=== PATIENT | female | born 1950 | race Caucasian/White ===

== ENCOUNTER 2021-12-04 10:33 | Day surgery (SDC) | payer MEDICARE, SELFPAY ==
[2021-12-04 11:10] VITALS: BP 178/87; PULSE 74; RESP 18; TEMP 35.9; O2SAT 97
[2021-12-04] MEDS: Tropicam./Phenyleph. (1/2.5%) 5 ML BTL OD ×3 (11:19→11:37)
[2021-12-04 11:25] VITALS: BP 150/86; PULSE 68; RESP 16; O2SAT 99
--- NOTE | 2021-12-04 11:33 | W.ANESPRE ---
General Info Date of Service Date Performed: 12/04/21 Height: 5 ft 2 in Weight: 79.379 kg Body Mass Index (BMI): 32.0 Surgical Procedure: Operation Date: 12/04/21 12:55 Proposed Procedure Side Surgeon p Cataract Extraction with IOL Implant Right Jeff Smith MD Meds Allergies and Home Medications Allergies Allergy/AdvReac Type Severity Reaction Status Date / Time amoxicillin Allergy Intermediate Hives Unverified 12/04/21 11:24 mushroom Allergy Intermediate Hives Unverified 12/04/21 11:24 animal dander Allergy Unknown Other (See Unverified 12/04/21 11:24 Comment) Sulfa (Sulfonamide Allergy Unknown Other (See Unverified 12/04/21 11:24 Antibiotics) Comment) tree and shrub pollen Allergy Unknown Other (See Unverified 12/04/21 11:24 Comment) Penicillins Allergy Hives Unverified 12/04/21 11:24 Nuts Allergy Unknown Other (See Uncoded 12/04/21 11:24 Comment) Home Medication Medication Instructions Recorded albuterol sulfate 90 mcg/actuation 1 puff INHALATION Q4H 11/30/21 aerosol inhaler amlodipine 5 mg tablet 5 mg PO DAILY 11/30/21 atorvastatin 40 mg tablet 40 mg PO DAILY 11/30/21 buspirone 15 mg tablet 15 mg PO DAILY 11/30/21 cholecalciferol (vitamin D3) 25 50 mcg PO DAILY 11/30/21 mcg (1,000 unit) capsule (Vitamin D3) famotidine 10 mg tablet 10 mg PO DAILY 11/30/21 fluticasone propionate 110 2 puff INHALATION BID 11/30/21 mcg/actuation HFA aerosol inhaler (Flovent HFA) fluticasone propionate 50 2 spray INTRANASAL DAILY 11/30/21 mcg/actuation nasal spray,suspension potassium chloride 10 mEq 10 meq PO DAILY 11/30/21 tablet,extended release sertraline 100 mg tablet 150 mg PO DAILY 11/30/21 Current Visit Medications: Current Medications Generic Name Dose Route Start Last Admin Trade Name Freq PRN Reason Stop Dose Admin Acetaminophen 1,000 mg 12/04/21 06:00 Acetaminophen 500 Mg Tab PO Q4H PRN PRN Miscellaneous Medication 0 ml 12/04/21 06:00 Prednisolone 1%, Moxifloxacin 0.5%, Nepafenac 0.1% 5ml Btl OD DIRECTED HANH Miscellaneous Medication 0 ml 12/04/21 06:00 12/04/21 11:30 Tropicam./Phenyleph. (1/2.5%) 5 Ml Btl OD 1 drp DIRECTED HANH Administration Tetracaine HCl 0 ml 12/04/21 06:00 Tetracaine 0.5% 4 Ml Btl OD DIRECTED HANH PFSH Active Problems Active Problems: Problem Status Onset Code Nuclear sclerotic cataract of right eye H25.11 Cortical cataract of right eye H26.9 Posterior subcapsular age-related cataract, right eye H25.041 Medical History Medical History Agoraphobia Allergic rhinitis Anxiety Asthma Depressive disorder GERD without esophagitis Goiter HLD (hyperlipidemia) Hypertensive disorder Pt. stated she f/u with PCP 11/30 in regards to her BP and will stay on amlodipine BP was 140/82, and will no longer titrate off amlodipine. Pt. stated she was ok to proceed with surgery for Monday 12/04 Migraine Panic attack Surgical History Surgical History (Updated 12/04/21 @ 11:23 by Edita Le) History of dental surgery Hx of cataract surgery Hx of colonoscopy pt denies Hx of hand surgery hand tendon release per note. Tobacco Smoking/Tobacco Use Status: Former Tobacco Use Alcohol Alcohol Intake: never Substance Use Substance use: Never Substance use type: does not use Vital Signs and Lab Results Lab Results Blood Type / Crossmatch: No Data to Display Complete Blood Count: No Data to Display Complete Metabolic Panel: No Data to Display Liver Function Panel: No Data to Display Coagulation Panel: No Data to Display Cardiac Panel: No Data to Display Arterial Blood Gas: No Data to Display Venous Blood Gas: No Data to Display Pancreas Panel: No Data to Display Thyroid Panel: No Data to Display Infectious Disease: No Data to Display Blood Cultures: No Data to Display Toxicology Panel: No Data to Display Anesthesia Assessment and Plan Anesthesia History Personal History: No History of Anesthesia Complications Family History: No Family History of Anesthesia Complications Exercise Tolerance Exercise Tolerance: Metabolic Equivalents>4 Pertinent Negatives Pertinent Negatives: No Major Cardiovascular Symptoms or Complaints and No Major Pulmonary Symptoms or Complaints Cardiac & Pulmonary Exam Cardiac Exam: Normal S1/S2 Heart Sounds Pulmonary Exam: Clear Bilateral Breath Sounds Implantable Cardiac Device Does patient have a Pacemaker or an ICD?: No Airway Exam Known Difficult Airway: No Mallampati Class: 2 Mouth Opening: Normal (> 3cm) Thyromental Distance: Greater than 3 cm Neck Range of Motion: Full ROM Neck Circumference: Normal Teeth Condition: Normal Dentition, Removable Dentures/Plates Upper, Removable Dentures/Plates Lower and Edentulous ASA Classification ASA Score: ASA 2 Emergency Case?: No NPO Status NPO Status: NPO Clears >2 hours, Solids >8 hours Anesthesia Plan Resuscitation Status: Full Code Anesthesia Technique: MAC Anesthesia Airway Planned: Natural Airway Monitors Used: Standard Monitors
[2021-12-04 11:51] VITALS: BMI 32.0
[2021-12-04] MEDS: Povidone-Iodine Ophth 30 ML BTL (11:59)
[2021-12-04] MEDS: Tetracaine 0.5% 4 ML BTL OD (11:59)
[2021-12-04] MEDS: Lidocaine 2% Jelly 6 ML SYR (12:05)
[2021-12-04] MEDS: Balanced Salt Soln.-PLUS 500 ML BAG (12:06)
[2021-12-04] MEDS: Duovisc Viscoelastic System EACH 1 EACH (12:06)
[2021-12-04] MEDS: Trypan Blue 0.06% 0.5 ML SYR (12:08)
[2021-12-04 12:36] VITALS: BP 150/79; PULSE 65; RESP 16; TEMP 36.4; O2SAT 99
--- NOTE | 2021-12-04 12:36 | PDOC.DSDIS_ITS ---
Discharge Plan Disposition Patient Disposition: HOME Condition: Good Discharge Details Attending Provider: Jeff Smith Primary Care Provider: Jaz Romero Home Meds and New Rx's Prescriptions: No Action atorvastatin 40 mg Tablet 40 mg PO DAILY 0RF famotidine 10 mg Tablet 10 mg PO DAILY 0RF sertraline 100 mg Tablet 150 mg PO DAILY 0RF potassium chloride 10 mEq Tablet Extended Release 10 meq PO DAILY 0RF amlodipine 5 mg Tablet 5 mg PO DAILY 0RF albuterol sulfate 90 mcg/actuation Hfa Aerosol Inhaler 1 puff INHALATION Q4H 0RF fluticasone propionate 50 mcg/actuation [place],Suspension 2 spray INTRANASAL DAILY 0RF Flovent HFA 110 mcg/actuation Hfa Aerosol Inhaler 2 puff INHALATION BID 0RF buspirone 15 mg Tablet 15 mg PO DAILY 0RF cholecalciferol (vitamin D3) [Vitamin D3] 25 mcg (1,000 unit) Capsule 50 mcg PO DAILY 0RF Discharge Instructions Stand Alone Forms: Post-op Topical Cataract, Rosa Boothe (DSU) Discharge Orders Discharge Orders: Discharge Order (Routine); Ordered 12/04/21 Ordered By: Jeff Smith DS: Diagnosis Discharge Diagnosis (1) Nuclear sclerotic cataract of right eye: Status: Resolved (2) Cortical cataract of right eye: Status: Resolved (3) Posterior subcapsular age-related cataract, right eye: Status: Resolved
--- NOTE | 2021-12-04 12:37 | W.PM.OP ---
Date of service: 12/04/21 Time of Service: 12:37 Operative Note Operative Note DATE OF PROCEDURE: 12/04/21 PRE-OP DIAGNOSIS: Nuclear/cortical/posterior subcapsular cataract, right eye Absent red reflex, right eye POST-OP DIAGNOSIS: same PROCEDURE: Cataract extraction using phacoemulsification with intraocular lens implantation, right eye, using capsular staining with Vision Blue SURGEON: Jeff Smith ANESTHESIA TYPE: Local By Surgeon and MAC Refer to Anesthesia Record PATHOLOGY: none sent COMPLICATIONS: None Patient was transported to: same day Patient's condition: stable Implants: [employer] / [employer] Tecnis [id number] Indications: Progressive visual loss due to cataract, right eye Procedure Description: CATARACT SURGERY OPERATIVE REPORT PREOPERATIVE DIAGNOSIS: 1. Nuclear/cortical/posterior subcapsular cataract, right eye, mature cataract 2. Poor red reflex secondary to #1 POSTOPERATIVE DIAGNOSIS: Same OPERATION: 1. Cataract extraction using phacoemulsification with posterior chamber intraocular lens implant, right eye. 2. Capsular staining with Vision Blue IOL: IOL Supervisor [employer]/Model: [employer] / ERASMO Tecnis [id number] IOL Power: + 22.0 diopters IOL Serial Number: [id number] Optic Diameter: 6.0mm Haptic/Overall Diameter: 13.0mm PHACO INFO: Cedric EDP Biotechurion Vision System with OZil and Active Fluidics Cumulative Dispersed Energy (CDE): 27.38 seconds SURGEON: Jeff Smith MD, DARIO ANESTHESIA: Monitored Anesthesia Care (MAC), with local sub-tenon's anesthetic infiltration COMPLICATIONS: None SPECIMENS: None INDICATIONS FOR PROCEDURE: The patient is a 71-year-old lady with history of diminished visual acuity in her right eye secondary to the development of a mature white cataract with dense nuclear/cortical/posterior subcapsular opacification. The option of cataract surgery was offered to the patient and she wished to proceed. PROCEDURE: The correct surgical eye was identified and marked as the right eye and the pupil was dilated in the preoperative area using mydriatics and cycloplegics. The dilated pupil size was 7.0 mm. Oral sedation was administered in the form of an Imprimis MKO Melt (midazolam 3mg/ketamine 25mg/ondansetron 2mg). The patient was brought to the operating room where cardiopulmonary monitoring was instituted and surgical time-out was performed, confirming the correct operative eye and IOL power. Topical anesthesia was administered and ophthalmic povidone-iodine 5% was instilled into the conjunctival fornices. Lidocaine gel was applied to the cornea and the junito-ocular area was prepped with Betadine 10% solution and draped in the usual sterile fashion for intraocular surgery, including an aperture drape. A Tegaderm transparent film dressing was cut in half and used to cover the lashes and lid margins. Care was taken to sequester the lashes and lid margins under the Tegaderm dressing. A lid speculum was placed between the lids of the operative eye and the Cedric Lux[employer] Revalia operating microscope was maneuvered into position. Rehana scissors were then used to make a conjunctival buttonhole approximately 6mm posterior to the limbus in the inferonasal quadrant. Blunt dissection was carried out to expose bare sclera, and a blunt-tipped sub-tenon?s anesthesia cannula was introduced and passed posteriorly along the globe where non-preserved plain lidocaine was injected into posterior sub-Tenon?s space. A sideport knife was used to make a paracentesis port inferotemporally. Intraocular phenylephrine/lidocaine was injected into the anterior chamber. Air was injected into the anterior chamber, followed by Vision Blue, which was painted over the anterior capsule and then irrigated out with BSS. The anterior chamber was filled with viscoelastic. A 2.4 mm keratome knife was used to create a 2-plane near clear corneal tunnel extending approximately 2 mm into clear cornea superior temporally.. A flap was raised on the anterior capsule and capsulorhexis forceps were used to complete a continuous curvilinear capsulorhexis of 5.0 mm. Balanced salt solution was then used to perform cortical cleaving hydrodissection and nuclear hydrodelineation until the lens could be freely rotated within the capsular bag. The lens nucleus was then disassembled and removed within the capsular bag and iris plane using phacoemulsification. Additional Viscoat was injected intermittently to protect the corneal endothelium. Residual cortical material was removed using the I/A handpiece. The posterior capsule was carefully polished to remove as much residual lens epithelial cells as safely possible. The capsular bag was then inflated and the anterior chamber deepened with viscoelastic. The lens implant described above was inserted into the capsular bag using the ERASMO [place] Injector. A Kuglen hook was used to dial the IOL into position. Residual viscoelastic was then removed first from posterior to the IOL, then from the anterior chamber using the I/A handpiece. The lens implant was noted to center nicely within the capsular bag. The incisions were stromally hydrated, and the anterior chamber was reformed using BSS. Then 0.5cc of moxifloxacin 1.0mg/ml were injected into the capsular bag and anterior chamber. The incisions were checked with a Weck spear and found to be secure. Several drops of ophthalmic povidone-iodine 5% were then applied to the eye followed by two drops of Imprimis combination prednisolone/moxifloxacin/nepafenac solution. The drapes were removed and a clear plastic protective eye shield was placed over the eye. The patient was then returned to [facility] Day Surgery in stable condition.
--- NOTE | 2021-12-04 12:49 | W.ANESPOSTOP ---
Postoperative Evaluation Date, Time and Location Date Performed: 12/04/21 Time Performed: 12:49 Patient Location: Day Surgery Unit Vital Signs Most Recent Imported Vital Signs: Most Recent Vital Signs Temp Pulse Resp BP Pulse Ox 36.4 C L 65 16 150/79 H 99 12/04/21 12:36 12/04/21 12:36 12/04/21 12:36 12/04/21 12:36 12/04/21 12:36 Pain Score Most Recent Pain Score: Most Recent Pain Score Pain Level 0 12/04/21 12:36 Assessment Mental Status: Awake (Alert & Oriented to Patient Baseline) Airway and Respiratory Function: Patent airway with normal (patient baseline) respiratory exam Cardiovascular Function: Hemodynamically Stable Hydration Status: Adequately Hydrated Nausea & Vomiting: No Nausea or Vomiting Pain: Pt. Denies Any Pain Peripheral Nerve Block: Patient did not receive a nerve block
[2021-12-04 13:10] VITALS: BP 149/82; PULSE 62; RESP 16; TEMP 36.4; O2SAT 97
== END 2021-12-04 13:10 | disposition home or self-care (01) ==
PROVIDERS: PCP Physician Assistant; Visit Provider Ophthalmology
PROC: (CPT 66984; principal; 2021-12-04 12:45)
DX: H25.041 Posterior subcapsular polar age-related cataract, right eye (principal); E78.5 Hyperlipidemia, unspecified; I10 Essential (primary) hypertension; K21.9 Gastro-esophageal reflux disease without esophagitis
CPT/HCPCS: 66984; V2632